=== PATIENT | female | born 1990 | race Caucasian/White ===

== ENCOUNTER 2020-12-12 14:13 | Emergency (ER) | payer MEDICAID ==
[~2020-12-12] VITALS: Ht 167.6 cm; Wt 68.0 kg
[2020-12-12] MEDS ORDERED: FOLI0.4T6 PO (14:51)
[2020-12-12] MEDS ORDERED: PREN-135 PO (14:51)
[2020-12-12 15:54] LABS: CLARITY URINE CLEAR (CLEAR); COLOR URINE YELLOW (YELLOW); KETONES URINE NEGATIVE (NEGATIVE); LEUKOCYTE ESTERASE URINE NEGATIVE (NEGATIVE); NITRITE URINE NEGATIVE (NEGATIVE); OCCULT BLOOD URINE 2+ (NEGATIVE); PH URINE 7.5 (4.5-8.0); PROTEIN URINE NEGATIVE (NEGATIVE); SPECIFIC GRAVITY URINE 1.012 (1.005-1.030); UROBILINOGEN URINE 0.2 E.U./dL (0.2-1.0)
[2020-12-12 18:47] LABS: BASOPHILS % 0.5 % (0.0-2.0); EOSINOPHILS % 0.6 % (0.0-5.0); HEMATOCRIT. 37.2 % (36.0-48.0); HEMOGLOBIN. 12.6 g/dL (12.0-16.0); LYMPHOCYTES % 24.5 % (20.0-50.0); MEAN CORPUSCULAR HEMOGLOBIN 29.1 pg (28.0-32.0); MEAN CORPUSCULAR VOLUME 85.9 fL (81.0-99.0); MONOCYTES % 7.5 % (2.0-8.0); NEUTROPHILS % 66.9 % (40.0-76.0); PLATELET 273 x1000/uL (130-400); RED BLOOD CELL COUNT 4.33 mill/uL (4.2-5.4); RED CELL DISTRIBUTION WIDTH 13.3 % (11.6-14.6)
[2020-12-12 18:52] LABS: CHLORIDE 107 mEq/L (98-107)
[2020-12-12 19:13] LABS: B-HCG QUANTITATIVE 1562 mIU/mL (<3)
[2020-12-12] MEDS ORDERED: ACETAMINOPHEN WITH CODEINE 300/30MG TABLET PO ONE (20:45)
[2020-12-12 21:00] VITALS: BP 116/65
== END 2020-12-12 21:26 | disposition home or self-care (01) ==
LOC: ER 14:13
DX: O26.891 Other specified pregnancy related conditions, first trimester (principal); O20.9 Hemorrhage in early pregnancy, unspecified; Z3A.00 Weeks of gestation of pregnancy not specified
CPT/HCPCS: 36415; 76801; 80048; 81003; 81025; 84702; 85025; 99284

== ENCOUNTER 2021-11-21 14:10 | Emergency (ER) | payer MEDICAID ==
[~2021-11-21] VITALS: Ht 165.1 cm; Wt 75.0 kg
[~2021-11-21 14:10] MED LIST: FOLI0.4T6 PO; PREN-135 PO
[2021-11-21] MEDS ORDERED: KETOROLAC 60MG/2ML VIAL IM ONE (16:00)
[2021-11-21 16:11] LABS: CLARITY URINE CLEAR (CLEAR); COLOR URINE YELLOW (YELLOW); KETONES URINE NEGATIVE (NEGATIVE); LEUKOCYTE ESTERASE URINE NEGATIVE (NEGATIVE); NITRITE URINE NEGATIVE (NEGATIVE); OCCULT BLOOD URINE NEGATIVE (NEGATIVE); PROTEIN URINE NEGATIVE (NEGATIVE); SPECIFIC GRAVITY URINE 1.013 (1.005-1.030); UROBILINOGEN URINE 0.2 E.U./dL (0.2-1.0)
[2021-11-21 16:25] LABS: BASOPHILS % 0.4 % (0.0-2.0); EOSINOPHILS % 0.4 % (0.0-5.0); HEMOGLOBIN. 11.9 g/dL (12.0-16.0); LYMPHOCYTES % 29.1 % (20.0-50.0); MEAN CORPUSCULAR HEMOGLOBIN 28.4 pg (28.0-32.0); MEAN CORPUSCULAR VOLUME 86.2 fL (81.0-99.0); MEAN PLATELET VOLUME 8.7 fl (7.4-10.4); MONOCYTES % 7.3 % (2.0-8.0); NEUTROPHILS % 62.8 % (40.0-76.0); PLATELET 263 x1000/uL (130-400); RED BLOOD CELL COUNT 4.18 mill/uL (4.2-5.4); RED CELL DISTRIBUTION WIDTH 13.8 % (11.6-14.6)
[2021-11-21 16:30] LABS: CHLORIDE 105 mEq/L (98-107)
[2021-11-21 16:37] LABS: HCG SCREEN NEGATIVE
[2021-11-21 21:30] VITALS: BP 111/75
== END 2021-11-21 21:30 | disposition home or self-care (01) ==
LOC: ER 14:10
DX: N83.201 Unspecified ovarian cyst, right side (principal); R10.2 Pelvic and perineal pain
CPT/HCPCS: 36415; 76830; 76856; 80048; 81003; 81025; 84703; 85025; 96372; 99284; J1885

== ENCOUNTER 2022-04-08 20:29 | Emergency (ER) | payer MEDICAID ==
[~2022-04-08] VITALS: Ht 160 cm; Wt 70.7 kg
[2022-04-08] MEDS ORDERED: TETANUS, DIPHTHERIA, PERTUSSIS VAC/PF 0.5ML (>10YR OLD) IM ONE (21:00)
[2022-04-08] MEDS ORDERED: BACITRACIN ZINC OINT UDPKT TOP ONE (21:00)
[2022-04-08] MEDS ORDERED: HYDROCODONE/ACETAMINOPHEN 5/325MG TABLET PO ONE (21:00)
[2022-04-08] MEDS ORDERED: LIDOCAINE HCL/EPINEPHRINE 1%-EPI 1:100,000 20 ML VIAL INFIL ONE (21:15)
[2022-04-08] MEDS ORDERED: LIDOCAINE HCL 1%/EPI 1:200,000 30 ML VIAL IJ NR (21:15)
[2022-04-08 23:27] VITALS: BP 119/84
== END 2022-04-08 23:28 | disposition home or self-care (01) ==
LOC: ER 20:29
DX: S61.211A Laceration without foreign body of left index finger without damage to nail, initial encounter (principal); W26.8XXA Contact with other sharp object(s), not elsewhere classified, initial encounter; Y93.89 Activity, other specified; Y92.89 Other specified places as the place of occurrence of the external cause; Y99.8 Other external cause status
CPT/HCPCS: 73130; 99283; J3490

== ENCOUNTER 2023-06-11 18:07 | Emergency (ER) | payer MEDICAID ==
[~2023-06-11] VITALS: Ht 167.6 cm; Wt 75.0 kg
[2023-06-11 18:20] VITALS: BP 114/50; PULSE 68; RESP 16; TEMP 98.1; O2SAT 99
[2023-06-11] MEDS ORDERED: LIDO700A15 TP (18:30)
[2023-06-11] MEDS ORDERED: CYCL5TAB MT (18:30)
[2023-06-11] MEDS ORDERED: KETOROLAC 30MG/ML VIAL IM NR (18:30)
[2023-06-11] MEDS ORDERED: NAPR-1176 MT (18:30)
[2023-06-11] MEDS ORDERED: KETOROLAC 30MG/ML VIAL IM ONE (18:30)
== END 2023-06-11 21:18 | disposition home or self-care (01) ==
LOC: ER 18:07
DX: M54.6 Pain in thoracic spine (principal); Z79.899 Other long term (current) drug therapy
CPT/HCPCS: 81025; 99283